=== PATIENT | female | born 1980 | race Two or more races ===

== ENCOUNTER → 2020-10-09 | Outpatient (CLI) | payer OTHER ==
[2020-10-09 22:28] LABS: FREE T4 1.3 NG/DL (0.76-1.46); THYROID STIMULATING HORMONE 0.013 uIU/ML (0.358-3.740)
[2020-10-11 10:09] LABS: THRYOGLOBULIN ANTIBODIES (ATA) < 1.0 IU/mL (0.0-0.9); THYROGLOBULIN QUANTITATIVE 0.2 ng/mL (1.5-38.5)
== END ==
LOC: M PLALAB 15:25
PROVIDERS: ATTEND Nurse Practitioner Family
DX: Z85.850 Personal history of malignant neoplasm of thyroid (principal)

== ENCOUNTER → 2021-02-13 | Outpatient (CLI) | payer OTHER ==
[2021-02-13 18:19] LABS: FREE T4 1.11 NG/DL (0.76-1.46); THYROID STIMULATING HORMONE 0.059 uIU/ML (0.358-3.740)
== END ==
LOC: M PLALAB 14:10
PROVIDERS: ATTEND Nurse Practitioner Family
DX: E89.0 Postprocedural hypothyroidism (principal)

== ENCOUNTER → 2021-08-13 | Outpatient (CLI) | payer OTHER ==
[2021-08-13 17:52] LABS: FREE T4 1.08 NG/DL (0.76-1.46); THYROID STIMULATING HORMONE 0.361 uIU/ML (0.358-3.740)
== END ==
LOC: M PLALAB 15:46
PROVIDERS: ATTEND Nurse Practitioner Family
DX: E89.0 Postprocedural hypothyroidism (principal)

== ENCOUNTER → 2023-06-02 | Outpatient (REF) | payer OTHER ==
[2023-06-02 16:09] LABS: BASO # 0.1 10^3/uL (0.0-0.2); BASO % 1.6 % (0.0-1.0); EOS # 0.2 10^3/uL (0.0-0.5); HEMATOCRIT 36.9 % (36.0-47.0); HEMOGLOBIN 11.3 g/dl (12.0-15.5); LYMPH # 1.9 10^3/uL (1.5-5.0); LYMPH % 36.9 % (24.0-44.0); MEAN CORPUSCULAR HEMOGLOBIN 24.9 pg (27.0-33.0); MEAN CORPUSCULAR HGB CONC 30.6 g/dl (32.0-36.5); MEAN CORPUSCULAR VOLUME 81.5 fl (80.0-96.0); MONO # 0.6 10^3/uL (0.0-0.8); MONO % 10.8 % (2.0-8.0); NEUTROPHILS # 2.4 10^3/uL (1.5-8.5); NEUTROPHILS % 47.5 % (36.0-66.0); PLATELET COUNT, AUTOMATED 332 10^3/uL (150-450); RED BLOOD COUNT 4.53 10^6/uL (4.00-5.40); WHITE BLOOD COUNT 5.1 10^3/uL (4.0-10.0)
[2023-06-02 16:35] LABS: FOLATE > 24.0 NG/ML (>5.4); TOTAL 25(OH) VITAMIN D 43.4 NG/ML (20.0-100.0)
[2023-06-02 16:36] LABS: ALBUMIN 3.7 G/DL (3.2-5.2); ALKALINE PHOSPHATASE 46 U/L (46-116); ALT/SGPT 19 U/L (7.0-40); AST/SGOT 19 U/L (<34); BILIRUBIN,TOTAL 0.5 MG/DL (0.3-1.2); BLOOD UREA NITROGEN 16 MG/DL (9-23); CALCIUM LEVEL 9.2 MG/DL (8.5-10.1); CARBON DIOXIDE LEVEL 27 MMOL/L (20-31); CHLORIDE LEVEL 108 MMOL/L (98-107); CHOLESTEROL LEVEL 167 MG/DL (<200); CHOLESTEROL RISK RATIO 2.45 (<5); CREATININE FOR GFR 0.79 MG/DL (0.55-1.30); FERRITIN 1.8 NG/ML (7.3-270.7); GLOMERULAR FILTRATION RATE > 60.0 (>58); GLUCOSE, FASTING 94 MG/DL (60-100); HDL CHOLESTEROL 67.9 MG/DL (>40); IRON (FE) 29 UG/DL (50-170); LDL CHOLESTEROL 90.1 MG/DL (<100); NON-HDL-C 99.1 MG/DL; PERCENT SATURATION 7.8 % (13.2-45.0); POTASSIUM SERUM 4.5 MMOL/L (3.5-5.1); SODIUM LEVEL 140 MMOL/L (136-145); TOTAL IRON BINDING CAPACITY 371 UG/DL (250-425); TRIGLYCERIDES LEVEL 45 MG/DL (<150)
[2023-06-02 16:37] LABS: FREE T4 1.49 NG/DL (0.89-1.76)
[2023-06-02 16:38] LABS: VITAMIN B12 LEVEL 685 PG/ML (211-911)
[2023-06-02 16:58] LABS: THYROID STIMULATING HORMONE 0.211 uIU/ML (0.55-4.78)
== END ==
LOC: M LABDRAWP 15:33
PROVIDERS: ATTEND Physician Assistant
DX: E89.0 Postprocedural hypothyroidism (principal); Z13.220 Encounter for screening for lipoid disorders; E55.9 Vitamin D deficiency, unspecified

== ENCOUNTER → 2023-10-28 | Outpatient (CLI) | payer OTHER ==
[~2023-10-28] MED LIST: PROHANCE 279.3MG/ML 15ML VIAL ONE
== END ==
LOC: M PLAIMG 07:34
PROVIDERS: ATTEND Physician Assistant
DX: H93.12 Tinnitus, left ear (principal)
CPT/HCPCS: 70553; A9576

== ENCOUNTER 2025-03-08 11:32 | Day surgery (SDC) | payer OTHER ==
[~2025-03-08] VITALS: Ht 170.2 cm; Wt 69.9 kg
[~2025-03-08 11:32] MED LIST changes: +ELET40TA; +FREM225A SQ; +LEVO112T2; -PROHANCE 279.3MG/ML 15ML VIAL ONE; +SERT50TA29; +[UNRECOGNIZED DRUG - CODE]; +mirena
[2025-03-08] MEDS ORDERED: LIDOCAINE 2% 100 MG/5 ML SDV (FOR ANES.) As Ordered ONE (12:05)
[2025-03-08 12:25] VITALS: TEMP 98.4
[2025-03-08 12:50] VITALS: BP 102/59; O2SAT 97
== END 2025-03-08 12:55 | disposition home or self-care (01) ==
LOC: M OPP 11:32
PROVIDERS: ATTEND Surgery
DX: Z12.11 Encounter for screening for malignant neoplasm of colon (principal); D12.6 Benign neoplasm of colon, unspecified; Z79.899 Other long term (current) drug therapy
CPT/HCPCS: 45385; 88305; J3010